=== PATIENT | female | born 1935 | race Caucasian/White ===

== ENCOUNTER 2023-05-11 17:23 | Emergency (ER) | payer MEDICARE ==
[2023-05-11] MEDS ORDERED: valACYclovir 1,000 MG Tab PO SCH (18:30)
== END 2023-05-11 19:03 | disposition home or self-care (01) ==
LOC: JP.ED 17:23
DX: B02.9 Zoster without complications (principal); E78.00 Pure hypercholesterolemia, unspecified; I10 Essential (primary) hypertension; Z88.0 Allergy status to penicillin; Z88.2 Allergy status to sulfonamides; Z79.82 Long term (current) use of aspirin; Z79.899 Other long term (current) drug therapy
CPT/HCPCS: 99282; A9270